=== PATIENT | female | born 1945 | race Caucasian/White ===

== ENCOUNTER 2016-12-15 08:35 | Emergency (ER) | payer MEDICAID ==
[~2016-12-15 08:35] MED LIST: AMLODIPINE BESY10 M1 PO; ASPIR 8181 MG PO; ATIVAN0.5 M1 PO; BUS5 PO; COZAAR100 MG PO; GLIPIZIDE2.5 M1 PO; HYDROCHLOROTH12.5 MG PO; IND40 PO; LIPI20 PO; METFORMIN HCL850 MG PO; NOVALIN; PEP20 PO; TAP5 PO
[2016-12-15 09:43] LABS: BASOPHIL % 0.3 % (0-2); PLATELET COUNT 307 x10^3mcL (130-400)
[2016-12-15 09:53] LABS: RED CELL DISTRIBUTION WIDTH 16.3 % (11.5-14.5)
[2016-12-15 09:54] LABS: rbc morphology (normal/abnorm) ABNORMAL (NORMAL)
[2016-12-15 10:06] LABS: CALCIUM 9.8 mg/dL (8.5-10.1); CARBON DIOXIDE 23.1 mmol/L (21-32); CHLORIDE SERUM 102 mmol/L (98-107); GLUCOSE SERUM 195 mg/dL (74-106); POTASSIUM SERUM 4.3 mmol/L (3.5-5.1); SODIUM SERUM 138 mmol/L (136-145)
[2016-12-15 10:19] LABS: ALBUMIN 3.7 g/dL (3.4-5.0); ALKALINE PHOSPHATASE 115 U/L (46-116); ALT/SGPT 44 U/L (14-59); AST/SGOT 34 U/L (15-37); BILIRUBIN TOTAL 0.41 mg/dL (0.20-1.00); MAGNESIUM 1.7 mg/dL (1.8-2.4)
[2016-12-15 10:20] LABS: T4(THYROXINE) 22.2 ug/dL (4.7-13.3); TOTAL PROTEIN, SERUM 8.3 g/dL (6.4-8.2)
[2016-12-15 11:43] VITALS: BP 124/47
== END 2016-12-15 11:43 | disposition home or self-care (01) ==
LOC: ED 08:35
PROVIDERS: Emergency Medicine
DX: R00.2 Palpitations (principal); E05.90 Thyrotoxicosis, unspecified without thyrotoxic crisis or storm; E11.9 Type 2 diabetes mellitus without complications; I10 Essential (primary) hypertension; F41.0 Panic disorder [episodic paroxysmal anxiety]; Z79.84 Long term (current) use of oral hypoglycemic drugs; Z88.2 Allergy status to sulfonamides
CPT/HCPCS: 82962; Q0092

== ENCOUNTER 2017-08-23 02:39 | Emergency (ER) | payer MEDICAID ==
[~2017-08-23] VITALS: Ht 157.5 cm; Wt 56.7 kg
[2017-08-23 03:03] VITALS: Ht 157.5 cm; Wt 56.7 kg
[2017-08-23 04:23] VITALS: BP 136/66
== END 2017-08-23 04:20 | disposition home or self-care (01) ==
LOC: ED 02:39
DX: R04.0 Epistaxis (principal); I10 Essential (primary) hypertension; E11.9 Type 2 diabetes mellitus without complications; F41.9 Anxiety disorder, unspecified; E03.9 Hypothyroidism, unspecified

== ENCOUNTER 2018-04-06 11:42 | Emergency (ER) | payer MEDICAID ==
[~2018-04-06] VITALS: Ht 152.4 cm; Wt 59.0 kg
[2018-04-06 11:53] VITALS: Ht 152.4 cm; Wt 59.0 kg
[2018-04-06 13:10] LABS: BASOPHIL % 0.6 % (0-2); PLATELET COUNT 246 x10^3mcL (130-400)
[2018-04-06 13:12] LABS: CALCIUM 9.3 mg/dL (8.5-10.1); CARBON DIOXIDE 29.9 mmol/L (21-32); CHLORIDE SERUM 97 mmol/L (98-107); CREATININE SERUM 1.1 mg/dL (0.6-1.0); GLUCOSE SERUM 388 mg/dL (74-106); SODIUM SERUM 134 mmol/L (136-145)
[2018-04-06 13:16] LABS: ALBUMIN 3.4 g/dL (3.4-5.0); ALKALINE PHOSPHATASE 113 U/L (46-116); ALT/SGPT 20 U/L (14-59); AMYLASE 57 U/L (25-115); AST/SGOT 12 U/L (15-37); BILIRUBIN TOTAL 0.5 mg/dL (0.20-1.00); LIPASE 230 IU/L (73-393); TOTAL PROTEIN, SERUM 8.1 g/dL (6.4-8.2)
[2018-04-06 13:21] LABS: CHOLESTEROL 133 mg/dL (<200)
[2018-04-06 13:45] LABS: microscopic required? YES; urine erythrocyte TRACE (NEGATIVE)
[2018-04-06 17:15] VITALS: BP 114/57
== END 2018-04-06 17:15 | disposition home or self-care (01) ==
LOC: ED 11:42
PROVIDERS: Emergency Medicine
DX: K80.70 Calculus of gallbladder and bile duct without cholecystitis without obstruction (principal); I12.9 Hypertensive chronic kidney disease with stage 1 through stage 4 chronic kidney disease, or unspecified chronic kidney disease; E11.22 Type 2 diabetes mellitus with diabetic chronic kidney disease; N18.3 Chronic kidney disease, stage 3 (moderate); E03.9 Hypothyroidism, unspecified; F41.9 Anxiety disorder, unspecified; Z88.2 Allergy status to sulfonamides
CPT/HCPCS: 82962; J1815; J1885; J7030; Q0092

== ENCOUNTER 2019-05-02 06:02 | Emergency (ER) | payer MEDICAID ==
[~2019-05-02] VITALS: Ht 149.9 cm; Wt 61.2 kg
[2019-05-02 06:20] VITALS: Ht 149.9 cm; Wt 61.2 kg
[2019-05-02 07:00] VITALS: BP 131/45
== END 2019-05-02 07:00 | disposition home or self-care (01) ==
LOC: ED 06:02
DX: R51 Headache (principal); I10 Essential (primary) hypertension; H93.19 Tinnitus, unspecified ear; E11.9 Type 2 diabetes mellitus without complications; Z88.2 Allergy status to sulfonamides
CPT/HCPCS: 82962